=== PATIENT | female | born 1970 | race Caucasian/White ===

== ENCOUNTER 2016-11-25 09:27 | Observation (INO) ==
[2016-11-25 10:35] LABS: Basophils % 0.6 %; Eosinophils # 0.1 K/mcL (0.0-0.6); Eosinophils % 2.7 %; Hematocrit 36.2 % (35.3-44.9); Hemoglobin 12.2 g/dL (11.5-15.4); Immature Granulocytes % 0.8 % (0-4); Lymphocytes # 0.8 K/mcL (0.6-4.6); Lymphocytes % 15.8 %; Mean Corpuscular HGB Conc 33.7 g/dL (31.6-35.5); Mean Corpuscular Hemoglobin 27.2 pg (28.0-33.3); Mean Corpuscular Volume 80.8 fL (83.0-100.0); Mean Platelet Volume 10.3 fL (9.4-12.4); Monocytes # 0.3 K/mcL (0.0-1.3); Monocytes % 5.1 %; Neutrophils # 3.7 K/mcL (1.6-8.9); Platelet Count 194 K/mcL (140-400); Red Blood Count 4.48 M/mcL (3.82-4.97); Red Cell Distribution Width 13.9 % (11.5-14.5)
[2016-11-25 11:00] LABS: BUN/Creatinine Ratio 9 (6-26); Blood Urea Nitrogen 9 mg/dL (7-20); Calcium 9.1 mg/dL (8.6-10.8); Carbon Dioxide 24 mEq/L (19-29); Chloride 105 mEq/L (98-109); Glucose 170 mg/dL (70-99); Osmolality,Calculated 293 (280-300); Sodium 140 mEq/L (136-145); eGFR For African Americans > 60 (> 60); eGFR For Non-African Americans > 60 (> 60)
--- NOTE | 2016-11-25 12:11 | Emergency Department Note ---
Disposition Clinical Impression: Syncope and collapse Disposition: Admitted As Inpatient Condition: Fair Time of Disposition: 12:00 Syncope HPI - General Chief Complaint: ED Syncope Stated Complaint: syncope Time Seen by Provider: 11/25/16 09:44 Source: EMS Limitations: no limitations Nursing Notes Reviewed: Yes Vital Signs Reviewed: Yes - History of Present Illness HPI Narrative: Patient's 46-year-old female complains of episodes syncope secondary to dizziness upon waking up this morning at 0900 hrs. Patient states that she awoke and felt fine. Patient stated she tried to get up and suddenly felt dizzy. The vertigo symptoms lasted for an hour. Afterwards the patient fell down secondary to passing out. Fall was witnessed by her son called EMS. Patient was out for 5 minutes. Patient is brought to the ED for evaluation. Patient states that she had a similar episode times one day ago at 0700 hrs. but symptoms of vertigo were apparent and patient woke up and was still lying down. Pt Subjective Complaint: loss of consciousness, collapsed Onset (ago): hour(s) Duration: minutes(s) (5) Prodromal Symptoms: vertigo Context: getting out of bed Injuries Sustained Associated with Event: none Current Symptoms: lightheaded, chest pain - Related Data Home Medications Medication Instructions Recorded Confirmed Atenolol [Tenormin] 25 mg PO DAILY 11/25/16 11/25/16 Atorvastatin Calcium [Lipitor] 20 mg PO DAILY 11/25/16 11/25/16 Benztropine [Cogentin] 0.5 mg PO BID 11/25/16 11/25/16 Cholecalciferol (Vitamin D3) 2,000 unit PO DAILY 11/25/16 11/25/16 [Vitamin D] HydrOXYzine 10 mg PO QID PRN 11/25/16 11/25/16 Metformin HCl [Glucophage] 1,000 mg PO BID 11/25/16 11/25/16 Naproxen Sodium [Aleve] 220 mg PO BID PRN 11/25/16 11/25/16 Omeprazole [PriLOSEC] 20 mg PO DAILY 11/25/16 11/25/16 Quetiapine Fumarate [Seroquel] 50 mg PO HS 11/25/16 11/25/16 Sertraline [Zoloft] 100 mg PO BID 11/25/16 11/25/16 Allergies Allergy/AdvReac Type Severity Reaction Status Date / Time No Known Allergies Allergy Verified 12/29/15 02:46 All systems ED: reviewed and negative except as stated. Constitutional: Denies: fever, chills Eyes: Denies: eye pain, vision change ENT ED: Denies: ear pain, hearing loss, congestion Cardiovascular: Denies: chest pain, palpitations Respiratory: Denies: cough, dyspnea Gastrointestinal: Denies: abdominal pain, nausea, vomiting, diarrhea Genitourinary: Denies: urgency, dysuria, frequency, hematuria Musculoskeletal: Denies: back pain, neck pain Integumentary: Denies: rash Neurological: Reports: weakness. Denies: headache Psychiatric: Denies: anxiety Endocrine: Reports: fatigue Past Medical History - Past Medical History Attestation: Yes The following information was validated with the patient. Source: patient Medical history: Reports: asthma, diabetes, GERD, hypertension Psychiatric history: Reports: bipolar, schizophrenia - Social History Smoking Status: Former smoker Smokeless Tobacco Status: No Alcohol use: Reports: none Drug use: Reports: none Physical Exam - General Limitations: no limitations General appearance: alert, in no apparent distress - Head Head exam: atraumatic, normocephalic, normal inspection - Eye Eye exam: Present: normal appearance, PERRL, EOMI, nystagmus (Right beating). Absent: scleral icterus, conjunctival injection - ENT ENT exam: normal exam, normal oropharynx, mucous membranes dry - Neck Neck exam: Present: normal inspection, full ROM, trachea midline. Absent: tenderness, lymphadenopathy - Chest Chest inspection: Present: normal inspection, symmetric chest wall rise - Respiratory Respiratory exam: Present: normal lung sounds bilaterally. Absent: respiratory distress, wheezes - Cardiovascular Cardiovascular exam: Present: regular rate, normal rhythm - Abdominal Exam Abdominal exam: Present: soft, Non-Tender, other (Area of ecchymosis along the line from heparin injection) - Extremities Exam Extremities exam: Present: normal inspection, full ROM, normal capillary refill. Absent: tenderness, pedal edema - Back Exam Back exam: Present: normal inspection, full ROM. Absent: tenderness, CVA tenderness (R), CVA tenderness (L) - Neurological Exam Neurological exam: Present: alert, oriented X3, CN II-XII intact, motor sensory deficit, reflexes normal - Psychiatric Psychiatric exam: Present: normal affect, normal mood - Skin Skin exam: Present: warm, dry, intact, normal color Course - Reevaluation(s) Reevaluation #1: Assessment syncope secondary to cardiovascular versus infection versus CVA. Patient currently afebrile so infectious least likely. We will pursue cardiovascular reasons of ACS/VA/arrhythmia. Patient does have a history of tachyarrhythmia. Patient has risk factors of diabetes, hypertension. Unsure whether patient had her head and after syncopal episode that led to a fall. CT scan patient had as well as full cardiac workup including chest x-ray, CBC, BMP , troponin, EKG. Time: 09:45 Reevaluation #2: Patient's labs and troponin were unremarkable. Patient's EKG shows normal sinus rhythm and no signs ischemia. Patient's chest x-ray and CT had shown no abnormalities. IMPRESSION: No acute process. D/ / Baljeet Victoria MD / Baljeet Victoria MD Interpreting Provider: Baljeet Victoria MD Head CT 11/25/16 10:08 IMPRESSION: No acute intracranial abnormality. Recommend patient be admitted for observation secondary to syncopal episode which lasted 5 minutes. Cannot be sure at this time the patient's symptoms vertigo are benign. Patient's positive Babinski on exam as well as patient's history of arrhythmia. She was accepted for observation by hospitalist Dr. Ring. Time: 11:45 - Consultations Consultation #1: Hospitalist Dr. Ring accepted patient for admission Time: 12:00 Vital Signs Temperature 98.2 F 11/25/16 09:29 Pulse Rate 87 11/25/16 09:29 Respiratory Rate 16 11/25/16 09:29 Blood Pressure 142/92 11/25/16 09:29 O2 Sat by Pulse Oximetry 97 11/25/16 09:29 Temperature 97.8 F 11/25/16 15:44 Pulse Rate 78 11/25/16 15:44 Respiratory Rate 16 11/25/16 15:44 Blood Pressure 112/72 11/25/16 15:44 O2 Sat by Pulse Oximetry 96 11/25/16 15:44 Oxygen Delivery Oxygen Delivery Room Air Syncope - Medical Records Medical records reviewed: Yes I reviewed the patient's medical records. - Lab Data Lab results reviewed: Yes I reviewed the patient's lab results. Lab results narrative: Short CBC 11/25/16 Range/Units 10:20 WBC 4.9 (4.3-11.1) K/mcL Hgb 12.2 (11.5-15.4) g/dL Hct 36.2 (35.3-44.9) % Plt Count 194 (140-400) K/mcL Neutrophils # 3.7 (1.6-8.9) K/mcL BMP 11/25/16 Range/Units 10:20 Sodium 140 (136-145) mEq/L Potassium 4.0 (3.5-4.5) mEq/L Chloride 105 (98-109) mEq/L Carbon Dioxide 24 (19-29) mEq/L BUN 9 (7-20) mg/dL Creatinine 0.95 (0.57-1.11) mg/dL Glucose 170 H (70-99) mg/dL Calcium 9.1 (8.6-10.8) mg/dL Cardiac Enzymes 11/25/16 11/25/16 Range/Units 17:15 10:20 Troponin I 0.00 0.00 (0-0.03) ng/mL Urine 11/25/16 Range/Units 16:50 Urine Color Red A (Yellow) Urine Clarity Cloudy A (Clear) Urine pH 5.5 (5.0-8.0) pH Units Ur Specific [place] 1.025 (1.010-1.025) Urine Protein 100 H (Neg-Trace) mg/dL Urine Glucose (UA) Normal (Normal) mg/dL Result diagrams: 11/25/16 10:20 11/25/16 10:20 Lab Results 11/25/16 11/25/16 11/25/16 Range/Units 10:20 10:20 10:20 WBC 4.9 (4.3-11.1) K/mcL RBC 4.48 (3.82-4.97) M/mcL Hgb 12.2 (11.5-15.4) g/dL Hct 36.2 (35.3-44.9) % MCV 80.8 L (83.0-100.0) fL MCH 27.2 L (28.0-33.3) pg MCHC 33.7 (31.6-35.5) g/dL RDW 13.9 (11.5-14.5) % Plt Count 194 (140-400) K/mcL MPV 10.3 (9.4-12.4) fL Immature Gran % 0.8 (0-4) % Seg Neutrophils % 75.0 % Lymphocytes % 15.8 % Monocytes % 5.1 % Eosinophils % 2.7 % Basophils % 0.6 % Neutrophils # 3.7 (1.6-8.9) K/mcL Lymphocytes # 0.8 (0.6-4.6) K/mcL Monocytes # 0.3 (0.0-1.3) K/mcL Eosinophils # 0.1 (0.0-0.6) K/mcL Basophils # 0.0 (0.0-0.2) K/mcL Sodium 140 (136-145) mEq/L Potassium 4.0 (3.5-4.5) mEq/L Chloride 105 (98-109) mEq/L Carbon Dioxide 24 (19-29) mEq/L BUN 9 (7-20) mg/dL Creatinine 0.95 (0.57-1.11) mg/dL Est GFR ( Amer) > 60 (> 60) Est GFR (Non-Af Amer) > 60 (> 60) BUN/Creatinine Ratio 9 (6-26) Glucose 170 H (70-99) mg/dL Calculated Osmolality 293 (280-300) Calcium 9.1 (8.6-10.8) mg/dL Troponin I 0.00 (0-0.03) ng/mL - Radiology Data Radiology results reviewed: Yes I reviewed the patient's radiology results. Chest X-Ray 11/25/16 09:45 IMPRESSION: No acute process. D/ / Baljeet Victoria MD / Baljeet Victoria MD Interpreting Provider: Baljeet Victoria MD Head CT 11/25/16 10:08 IMPRESSION: No acute intracranial abnormality. D/ / Ming Hurd MD / Ming Hurd MD Interpreting Provider: Ming Hurd MD Brain MRI 11/25/16 13:57 IMPRESSION: No acute infarct. D/ / Gopi Ladd MD / Gopi Ladd MD Interpreting Provider: Gopi Ladd MD - EKG Data EKG attestation: Yes I reviewed and interpreted this EKG. EKG shows normal: sinus rhythm Rate: normal Rhythm: NSR Attestation Statement - Attestation Attestation: Patient was seen with resident physician. I reviewed the history, physical, assessment and plan, and agree with the findings. I also personally evaluated this patient and had [id number]-[id number] time with this patient. 46-year-old female presents to the emergency department with dizziness and syncope. Patient states she woke up this morning dizzy. Dizziness continued throughout the course in the morning. Got to the point where she lost consciousness for approximately 5 minutes. She denies injury to her head or other body areas. The wall fall was witnessed by her son who states he tried to wake her for approximately 5 minutes unsuccessfully. Patient resolved spontaneously was brought to the emergency department for additional evaluation and treatment. On exam patient states she felt fine at this point. She does note that she has a history of tachycardia of some sort. She did not have any kind of cardiac symptoms at this time no chest pain or short of breath. ENT unremarkable head is normocephalic atraumatic. Heart regular rhythm and rate. Lungs clear. Abdomen soft and nontender. Extremities no appreciable swelling. Neurologically patient is alert and intact without focal deficits. CT of the head did not show any acute abnormalities. Other laboratory testing and EKG were also unremarkable. Patient remained stable while in the emergency department. With a history of passing out however for five-minute period of time we felt admission was indicated for further workup. The hospitalist was called and notified of need for admission agreeing to accept the patient. I agree with the resident physician assessment and plan.
--- NOTE | 2016-11-25 13:02 | Event Note ---
Date of Encounter: 11/25/16 Time of Encounter: 12:57 Patient seen and examined with nurse practitioner. 46-year-old female with history of diabetes mellitus, hypertension presents an emergency room today with dizziness and syncope. Since yesterday patient has been noticing dizziness which she describes as room spinning sensation. This was associated with nausea and vomiting that started today. Patient notices that dizziness occurs more when she looks towards the left side. No prior history of vertigo. She also noted that her gait was somewhat unsteady. No focal weakness. Neurological exam during my interviewees intact including cerebellar signs and no nystagmus. Today patient continued to feel dizzy nausea and vomiting. She was getting out from her room to the living room and she does not remember anything afterwards. Family members noted the voice of the patient falling and went to see her and she was found to be unresponsive for about 5 minutes. Sugar was checked then and was in the 200s range. There was no incontinence to urine or stool there was no witnessed seizure activity. No prior history of seizures. Patient has prior history of arrhythmias for which he takes a beta kilo. Not sure type of arrhythmia. Suspect vertigo. however because of the risk factors Patient will be admitted under observation status. continuous telemetry monitoring for arrhythmia. MRI of the brain will be performed. EEG will be performed. Echocardiogram and carotid Doppler's will be performed. Check serial troponin. EKG without the ischemic changes
[2016-11-25] MEDS ORDERED: Naloxone 0.4 MG/ML INJ IVP PRN (13:53)
[2016-11-25] MEDS ORDERED: Dextrose Gel 15 GM PO PRN ×2 (14:17)
[2016-11-25] MEDS ORDERED: *HR* Dextrose 50 % in Water (Syg) 50 ML SYRINGE IVP PRN (14:17)
[2016-11-25] MEDS ORDERED: D5% in Water 1,000 ML IVC PRN (14:17)
--- NOTE | 2016-11-25 14:17 | Internal Med History&Physical ---
Date of Encounter: 11/25/16 Time of Encounter: 13:00 Assessment and Plan (1) Syncope Current visit: Yes Status: Acute 1 patient has been experiencing dizziness and had a syncopal episode today. We will place on continuous cardiac monitoring 2 we will hold sedating medications 3 we will obtain orthostatic vital signs 4 we will give IV fluids 5 we will obtain cardiac echo 6 we will obtain MRI of head 7 we will obtain carotid Dopplers [address] patient on fall precautions Qualifiers: Syncope type: unspecified Qualified Code(s): R55 - Syncope and collapse (2) HTN (hypertension) Current visit: Yes Status: Acute 1 presently controlled we will continue with home medications with parameters goal is to maintain systolic less than 140. 2 low sodium diet Qualifiers: Hypertension type: essential hypertension Qualified Code(s): I10 - Essential (primary) hypertension (3) Schizophrenia Current visit: No Status: Chronic 1 presently controlled. We will hold Seroquel for now due to episodes of syncope and resume tomorrow. Qualifiers: Schizophrenia type: unspecified Qualified Code(s): F20.9 - Schizophrenia, unspecified (4) Bipolar 1 disorder Current visit: No Status: Chronic Presently controlled we will hold Zoloft Seroquel for now due to syncopal episode resume tomorrow after workup (5) Diabetes Current visit: Yes Status: Acute 1 patient is on metformin we will hold for now place on Accu-Cheks before meals at bedtime with sliding scale insulin to cover 2 diabetic diet Qualifiers: Diabetes mellitus type: type 2 Diabetes mellitus complication status: without complication Diabetes mellitus usp insulin use: without usp use Qualified Code(s): E11.9 - Type 2 diabetes mellitus without complications (6) DVT prophylaxis Current visit: Yes Status: Acute 1 [facility] Internal Medicine - H&P: HPI Chief complaint: syncope Admitted From: Emergency Dept Plans for Post Hospital Care: Home History of present illness: Ms. Thomas is a 46 year with a past medical history of hypertension bipolar schizophrenia GERD diabetes. According to the patient she did experience a episode of light headedness yesterday why she was sitting. This a.m. woke she felt as if the room was spinning and she felt nauseated. She got up out of bed went to the bathroom afterwards began to walk across room became dizzy and passed out. Family heard patient hit the floor they came to assistance she did have LOC Accu-Chek was obtained which revealed blood sugar of 238. There was no seizure activity no loss of bowel or bladder patient was unconscious for approximately 5 minutes according to witnesses. Once she awoke patient did not recall passing out. She denied any chest pain shortness of breath headache visual disturbances however she did complain of palpitations as well as dizziness prior to incident. She denies any recent medication changes she has not been excising any vomiting diarrhea has adequate oral intake. She went to the ER for evaluation and ER records EKG was with normal sinus rhythm lab work was unremarkable CT of head was without any intracranial abnormalities she was admitted for further work up and evaluation. Presently patient denies any chest pain palpitations or dizziness. Neuro check complete within normal limits cranial nerves II through XII are intact. Cerebellar exam intact no nystagmus patient does state she has more dizziness when looking for the left. Lung sounds are clear heart sounds S1-S2 with no rubs, gallops or murmurs noted. She is hemodynamically stable at this time. I reviewed his case with Dr. Ring who agrees with plan. Past Med Surg Social Fam HX - Past Medical History Medical history: asthma, diabetes, GERD, hypertension Psychiatric history: bipolar, schizophrenia - Social History Smoking Status: Former smoker Smokeless Tobacco Status: No Alcohol use: none Drug use: none - Family History Father Living Status: Still Living Hx Family Cardiac Disorders: Yes (heart disease ) Internal Medicine - H&P: Meds Atenolol [Tenormin] 25 mg PO DAILY 11/25/16 [History] Atorvastatin Calcium [Lipitor] 20 mg PO DAILY 11/25/16 [History] Benztropine [Cogentin] 0.5 mg PO BID 11/25/16 [History] Cholecalciferol (Vitamin D3) [Vitamin D] 2,000 unit PO DAILY 11/25/16 [History] HydrOXYzine 10 mg PO QID PRN 11/25/16 [History] Metformin HCl [Glucophage] 1,000 mg PO BID 11/25/16 [History] Naproxen Sodium [Aleve] 220 mg PO BID PRN 11/25/16 [History] Omeprazole [PriLOSEC] 20 mg PO DAILY 11/25/16 [History] Quetiapine Fumarate [Seroquel] 50 mg PO HS 11/25/16 [History] Sertraline [Zoloft] 100 mg PO BID 11/25/16 [History] Allergies No Known Allergies Allergy (Verified 12/29/15 02:46) All Systems PM: A 10-system review of systems was performed and is negative for pertinent findings except as documented above in the HPI. - Constitutional Constitutional: no chills, no fever(s), no night sweats - EENT Nose, mouth and throat: no dysphagia, no nasal discharge, no neck pain, no sore throat - Cardiovascular Cardiovascular ROS IM: palpitations - Respiratory Respiratory: no cough, no dyspnea, no wheezing, no excessive phlegm production - Gastrointestinal Gastrointestinal: no abdominal pain, no diarrhea, no hematemesis, no hematochezia, no melena, no nausea, no vomiting - Genitourinary Genitourinary: no change in urinary stream, no dysuria, no flank pain, no hematuria - Musculoskeletal Musculoskeletal ROS IM: no numbness, no tingling - Integumentary Integumentary IM: no rash, no unusual bruising - Neurological Neurological ROS: dizziness, no confusion, no convulsions, no focal weakness, no numbness, no tingling, no tremor(s) - Constitutional Vitals: Temp Pulse Resp BP Pulse Ox 98.1 F 80 16 125/80 96 11/25/16 14:01 11/25/16 14:01 11/25/16 14:01 11/25/16 14:01 11/25/16 14:01 General appearance: Present: A&O X 3, answers questions appropriately - Eye Eye exam: Present: PERRL, conjuntiva pink, sclera anicteric Pupils: Present: PERRL - Neck Neck exam general surgery: Present: supple, trachea midline. Absent: lymphadenopathy - Respiratory Respiratory exam: Present: CTAB. Absent: accessory muscle use, rales, rhonchi, wheezes - Cardiovascular Cardiovascular exam: Present: RRR, +S1, +S2. Absent: diastolic murmur, gallop, rubs, systolic murmur - GI/Abdominal GI/Abdominal exam: Present: normal bowel sounds, soft, no peritoneal signs. Absent: distended, tenderness - Extremities Exam Extremities exam: Present: warm, radial pulses palpable and symetrical. Absent : calf tenderness, cyanotic, pedal edema - Neurological Exam Neurological exam: Present: CN II-XII intact, oriented X3, no focal deficits, strengths equal and symetr throughout. Absent: pronater drift, facial droop, speech deficit - Skin Skin exam: Present: dry, intact Internal Med - H&P Results - Labs CBC & Chem 7: 11/25/16 10:20 11/25/16 10:20 - EKG Data EKG shows normal: sinus rhythm - Diagnostic Studies Other Images Additional comments: Chest X-Ray 11/25/16 09:45 IMPRESSION: No acute process. D/ / Baljeet Victoria MD / Baljeet Victoria MD Interpreting Provider: Baljeet Victoria MD Head CT 11/25/16 10:08 IMPRESSION: No acute intracranial abnormality. D/ / Mign Hurd MD / Ming Hurd MD Interpreting Provider: Ming Hurd MD
[2016-11-25] MEDS: 0.9 % Sodium Chloride 1,000 ML IVC SCH (16:33)
[2016-11-25 17:08] LABS: Bilirubin,Urine Small (Negative); Blood,Urine Large (Negative); Clarity,Urine Cloudy (Clear); Color,Urine Red (Yellow); Glucose,Urine (UA) Normal (Normal); Ketones,Urine Trace mg/dL (Negative); Leukocyte Esterase,Urine Trace (Negative); Nitrite,Urine Negative (Negative); PH,Urine 5.5 pH Units (5.0-8.0); Protein,Urine 100 mg/dL (Neg-Trace); Specific Gravity,Urine 1.025 (1.010-1.025); Urobilinogen,Urine Normal (Normal)
[2016-11-25 17:13] LABS: Squamous Epithelial Cell,Urine Many per lpf (None-Few)
[2016-11-25 17:14] LABS: Amorphous Sediment,Urine Moderate (Few); Bacteria,Urine Many per hpf (None-Few)
[2016-11-25 17:16] LABS: Amphetamine Screen,Urine Negative ng/mL (Cutoff=1000); Barbiturate Screen,Urine Negative ng/mL (Cutoff=200); Benzodiazepines Screen,Urine Negative ng/mL (Cutoff=200); Cannabinoid Screen,Urine Negative ng/mL (Cutoff = 50); Cocaine Screen,Urine Negative ng/mL (Cutoff= 300); Opiate Screen,Urine Negative ng/mL (Cutoff=300); Phencyclidine Screen,Urine Negative ng/mL (Cutoff=25)
[2016-11-25] MEDS: Insulin LISPRO 300 UNITS/3 ML VIAL SQ SCH (17:48)
[2016-11-25] MEDS ORDERED: Insulin LISPRO 300 UNITS/3 ML VIAL SQ SCH (21:00)
[2016-11-26] MEDS: 0.9 % Sodium Chloride 1,000 ML IVC SCH (03:18)
[2016-11-26] MEDS ORDERED: traMADol 50 MG TABLET PO ONE (03:56)
[2016-11-26 07:44] LABS: Basophils % 0.6 %; Eosinophils # 0.2 K/mcL (0.0-0.6); Eosinophils % 2.9 %; Hematocrit 35.8 % (35.3-44.9); Hemoglobin 11.8 g/dL (11.5-15.4); Immature Granulocytes % 0.6 % (0-4); Lymphocytes # 1.3 K/mcL (0.6-4.6); Lymphocytes % 24.7 %; Mean Corpuscular Hemoglobin 26.9 pg (28.0-33.3); Mean Corpuscular Volume 81.5 fL (83.0-100.0); Mean Platelet Volume 10.4 fL (9.4-12.4); Monocytes # 0.3 K/mcL (0.0-1.3); Monocytes % 6.4 %; Neutrophils # 3.3 K/mcL (1.6-8.9); Platelet Count 192 K/mcL (140-400); Red Blood Count 4.39 M/mcL (3.82-4.97); Segmented Neutrophils % 64.8 %
[2016-11-26 08:28] LABS: BUN/Creatinine Ratio 10 (6-26); Blood Urea Nitrogen 8 mg/dL (7-20); Calcium 8.6 mg/dL (8.6-10.8); Carbon Dioxide 18 mEq/L (19-29); Chloride 106 mEq/L (98-109); Glucose 165 mg/dL (70-99); Osmolality,Calculated 286 (280-300); Potassium 3.8 mEq/L (3.5-4.5); Sodium 137 mEq/L (136-145); eGFR For African Americans > 60 (> 60); eGFR For Non-African Americans > 60 (> 60)
[2016-11-26] MEDS ORDERED: Cholecalciferol (D-3) 1,000 UNIT TABLET PO SCH (09:00)
[2016-11-26] MEDS: Insulin LISPRO 300 UNITS/3 ML VIAL SQ SCH ×2 (09:05→12:16)
[2016-11-26] MEDS ORDERED: Acetaminophen 325 MG TABLET PO PRN (10:23)
[2016-11-26] MEDS ORDERED: *HR* OxyCODONE Immed Rel 5 MG TABLET PO PRN (10:24)
--- NOTE | 2016-11-26 11:02 | ECHO - Doppler Report ---
Echocardiogram Name: Anya Thomas Date of Study: 11/26/2016 Date: 1970 Ht: 65.0 in Medical Record#: [id number] Age: 46 Wt: 264.0 lb Gender: Female BSA: 2.23 Order #: [id number] Location: [facility] Room #: [facility] Reading Physician: Jericho Chatterjee MD, [facility] Counter Attendant: Dioni Mcallister RDCS Ordering Physician: Anya Rader CNP Primary Physician: ALANNAH Pozo Indications: Syncope Impressions: LVEF 65-70%. No pulmonary hypertension. No segmental dysfunction. No significant valvular dysfunction. Left Ventricular Wall Motion: Rest Echo Findings The apex, apical inferior, mid inferior, basal inferior, apical anterior, mid anterior, basal anterior, apical septal, mid inferior septal, basal inferior septal, apical lateral, mid anterior lateral, basal anterior lateral, mid anterior septal, mid inferior lateral, basal anterior septal and basal inferior lateral [place] were hyperkinetic. Findings: Study Quality * Technically adequate exam. Right Ventricle * Normal right ventricular structure and function. Left Atrium * Normal left atrial size. Right Atrium * Normal right atrial size. Aortic Valve * Trileaflet aortic valve with normal function. Mitral Valve * Normal mitral valve structure and function. Interatrial Septum * No evidence of PFO by color Doppler. Aorta * Normally sized aortic root. Pericardium * The pericardium appears normal. ECG Findings * Normal sinus rhythm. Tricuspid Valve * Trace tricuspid regurgitation. * No tricuspid stenosis. * Estimated RVSP is 32 mmHg. * Estimated RA pressure is 3-5 mmHg. * No pulmonary hypertension. Pulmonic Valve * Pulmonic valve is not well visualized. * No pulmonic stenosis. * No pulmonic regurgitation. Left Ventricle * LVEF 65-70%. * No segmental dysfunction. * Indeterminate diastolic function. History Hypertension Diabetes Hypercholesteremia Family History of CAD Measurements: BP: 130/ 84 2D Normal Values RVIDd: 2.14 cm <2.7 cm IVSd: .80 cm 0.6 - 1.0 cm LVIDd: 4.86 cm 3.7 - 5.6 cm LVPWd: .80 cm 0.6 - 1.1 cm LVIDs: 3.56 cm 1.5 - 3.6 cm AO: 2.60 cm < 4.0 cm LA: 3.30 cm 2.0 - 4.0cm %FS: 26.70 cm >25 % LA volume: 52 Mitral Valve Peak E:.91 m/sec Peak A:.75 m/sec E/A Ratio:1.2 Peak E' Lat Bakari:13.1 cm/s Peak E' Med Bakari:9.79 cm/s E/E' Lat Ratio:6.9 E/E' Med Ratio:9.3 Tricuspid Valve TV Regurg Peak Grad: 32.00mmHg TV Regurg Peak Bakari: 2.82m/sec Updated by Jericho Chatterjee MD, [facility] on 11/26/2016 10:57:03 AM electronically signed on 11/26/2016 10:57:17 AM with status of Final Wall Motion Jarquin: 1=Normal, 2=Hypokinesis, 3=Akinesis, 4=Dyskinesis, 5=Aneurysmal, 6=Hyperkinetic, X=Not Visualized (Blank)=Missing
[2016-11-26 11:09] VITALS: BP 134/83
--- NOTE | 2016-11-26 13:46 | Carotid Imaging Report ---
Carotid Duplex Patient Name:Anya Thomas Order Number:[id number] Procedure Date:11/26/2016 Date:1970Age:46 yrs Gender:Female Location:[facility] Room #: 3B52 Chief Engineer Waterworks:Dioni Mcallister [id number] Referring MD:Anya Rader [employer] job captain:Raghavenrda Hyatt, PAC Reading MD:Harish Whitfield MD Study Quality:Technically Difficult Primary Indications:Syncope Risk Factors Yes/No Hypertension Yes Diabetes Yes Hypercholesterolemia Yes Smoker Previous Yes Impressions: Findings: Bilateral carotid system is essentially normal Recommendations: After imaging the patient returned to their room. Findings Carotid Duplex: Doe scale imaging combined with Doppler flow analysis suggests normal findings bilaterally. Right: The right proximal common carotid artery has a PSV of 76 cm/s and a EDV of 15 cm/s. The right mid common carotid artery has a PSV of 82 cm/s and a EDV of 19 cm/s. The right distal common carotid artery has a PSV of 55 cm/s and a EDV of 19 cm/s. The right bifurcation has a PSV of 50 cm/s and a EDV of 20 cm/s. The right proximal internal carotid artery has a PSV of 48 cm/s and a EDV of 14 cm/s. The right mid internal carotid artery has a PSV of 46 cm/s and a EDV of 15 cm/s. The right distal internal carotid artery has a PSV of 44 cm/s and a EDV of 19 cm/s. The right eca has a PSV of 97 cm/s and a EDV of 14 cm/s. The right vertebral artery has a PSV of 40 cm/s and a EDV of 14 cm/s. Left: The left proximal common carotid artery has a PSV of 91 cm/s and a EDV of 24 cm/s. The left mid common carotid artery has a PSV of 97 cm/s and a EDV of 29 cm/s. The left distal common carotid artery has a PSV of 63 cm/s and a EDV of 19 cm/s. The left bifurcation has a PSV of 56 cm/s and a EDV of 10 cm/s. The left proximal internal carotid artery has a PSV of 78 cm/s and a EDV of 15 cm/s. The left mid internal carotid artery has a PSV of 72 cm/s and a EDV of 21 cm/s. The left distal internal carotid artery has a PSV of 50 cm/s and a EDV of 23 cm/s. The left eca has a PSV of 125 cm/s and a EDV of 12 cm/s. The left vertebral artery has a PSV of 36 cm/s and a EDV of 12 cm/s. Prior Study: No prior study available for comparison. Carotid Results Right PSV EDV Assessment Proximal CCA 76 15 Normal Mid CCA 82 19 Normal Distal CCA 55 19 Normal Bifurcation 50 20 Normal Proximal ICA 48 14 Normal Mid ICA 46 15 Normal Distal ICA 44 19 Normal ECA 97 14 Normal Vertebral Artery 40 14 Normal Left PSV EDV Assessment Proximal CCA 91 24 Normal Mid CCA 97 29 Normal Distal CCA 63 19 Normal Bifurcation 56 10 Normal Proximal ICA 78 15 Normal Mid ICA 72 21 Normal Distal ICA 50 23 Normal ECA 125 12 Normal Vertebral Artery 36 12 Normal Ratio's Right ICA/CCA Ratio: 0.59 ICA/CCA Values: 48/82 Left ICA/CCA Ratio: 0.80 ICA/CCA Values: 78/97 Updated by Harish Whitfield MD on 11/26/2016 1:42:20 PM electronically signed on 11/26/2016 1:42:33 PM with status of Final
--- NOTE | 2016-11-26 15:11 | Discharge Summary ---
Date of Encounter: 11/26/16 Time of Encounter: 15:09 - Discharge Diagnosis (1) Dizziness Priority: Primary Status: Acute (2) HTN (hypertension) Priority: Secondary Status: Chronic Qualifiers: Hypertension type: essential hypertension Qualified Code(s): I10 - Essential (primary) hypertension (3) Schizophrenia Priority: Secondary Status: Chronic Qualifiers: Schizophrenia type: unspecified Qualified Code(s): F20.9 - Schizophrenia, unspecified (4) Bipolar 1 disorder Priority: Secondary Status: Chronic (5) Diabetes Priority: Secondary Status: Chronic Qualifiers: Diabetes mellitus type: type 2 Diabetes mellitus complication status: without complication Diabetes mellitus dedicated intermodal truck driver insulin use: without dedicated intermodal truck driver use Qualified Code(s): E11.9 - Type 2 diabetes mellitus without complications - Discharge Medications Home Medications: Atenolol [Tenormin] 25 mg PO DAILY 11/25/16 [History] Atorvastatin Calcium [Lipitor] 20 mg PO DAILY 11/25/16 [History] Benztropine [Cogentin] 0.5 mg PO BID 11/25/16 [History] Cholecalciferol (Vitamin D3) [Vitamin D3] 2,000 unit PO DAILY 11/25/16 [History] HydrOXYzine 10 mg PO QID PRN 11/25/16 [History] Metformin HCl [Glucophage] 1,000 mg PO BID 11/25/16 [History] Naproxen Sodium [Aleve] 220 mg PO BID PRN 11/25/16 [History] Omeprazole [PriLOSEC] 20 mg PO DAILY 11/25/16 [History] Quetiapine Fumarate [Seroquel] 50 mg PO HS 11/25/16 [History] Sertraline [Zoloft] 100 mg PO BID 11/25/16 [History] Allergies/Adverse Reactions: Allergies No Known Allergies Allergy (Verified 12/29/15 02:46) Procedures/tests Complete & Pending: Procedures Performed prior 72 hours Category Date Time Status MR head/brain wo con [MR] Routine MRI 11/25/16 13:57 Completed EV carotid duplex imaging BI Routine Y 11/26/16 14:57 Completed EV echocardiogram Routine Y 11/26/16 13:57 Completed Date of admission: 11/25/16 12:17 Primary care physician: Raghavendra Hyatt Discharging clinician: Jeanette Velarde Anticipated date of discharge: 11/26/16 - Patient Status Disposition: Home, Self-Care Condition: Fair Functional capacity at discharge: independent ambulation Overall status at discharge: patient is progressing back to baseline - Discharge Instructions Instructions: Syncope (DC), Diabetes Mellitus Type 2 in Adults (DC), Hypertension (DC) Follow Up With: Raghavendra Hyatt PAC [Primary Care Provider] - - Diet and Activity Activity: resume usual activities as tolerated Diet: diabetic diet, low fat, low cholesterol, low salt diet Hospital course: Ms. Thomas is a 46 year old female with the above medical problems who was initially admitted with dizziness/vertigo-like symptoms. Orthostatic vitals were checked, noted to be negative. Initial labs and EKG done in the emergency room showed no acute abnormality. No source of infection was noted. Telemetry monitoring remained uneventful and serial troponins were negative. Echocardiogram was done, showed preserved ejection fraction and no significant abnormality. MRI brain showed no evidence of mass/acute infarct/bleed. Bilateral carotid Doppler showed no evidence of hemodynamically significant stenosis. Patient remains hemodynamically stable and feels much better today and is medically stable for discharge. She is noted to be on multiple medications for schizophrenia/depression and hypertension and her dizziness could be caused by polypharmacy. She is encouraged to follow up with primary care provider to discuss about this. - Time Spent with Patient Total time spent providing and/or coordinating discharge services: Greater than 30 minutes (45 min) - Constitutional Vitals: Temp Pulse Resp BP Pulse Ox 98.1 F 74 16 134/83 97 11/26/16 11:08 11/26/16 11:08 11/26/16 11:08 11/26/16 11:08 11/26/16 11:08 General appearance: Present: A&O X 3, answers questions appropriately - Respiratory Respiratory exam: Present: CTAB. Absent: accessory muscle use, rales, rhonchi, wheezes - Cardiovascular Cardiovascular exam: Present: RRR, +S1, +S2. Absent: diastolic murmur, gallop, rubs, systolic murmur
--- NOTE | 2016-11-26 20:17 | Electrocardiograph Report ---
[address] [address] Test Date: 2016-11-25 Pat Name: Anya Thomas Department: 105 Room: 3B Gender: F Clinical Educator: THOMAS : 1970 Requested By: Haider Sánchez Order Number: [id number] Reading MD: Jericho Chatterjee MD Measurements Intervals [place] Rate: 84 P: 14 NC: 151 QRS: -2 QRSD: 69 T: 3 QT: 378 QTc: 419 Interpretive Statements SINUS RHYTHM Electronically Signed On 11-26-2016 20:15:49 EDT by Jericho Chatterjee MD
== END 2016-11-26 16:30 | disposition home or self-care (01) ==
LOC: 3BNU 09:27 → EMEROO 09:27 → SUATTDRO 12:17 → 3BNU 13:04
PROVIDERS: ADMIT Hospitalist; ATTEND Internal Medicine